=== PATIENT | female | born 1970 | race Two or more races ===

== ENCOUNTER 2025-03-11 17:29 | Emergency (ER) | payer MEDICARE, SELFPAY ==
[2025-03-11 17:48] VITALS: BP 149/79; PULSE 81; RESP 18; TEMP 37.1; O2SAT 95; BMI 28.9
--- NOTE | 2025-03-11 17:57 | XR_ITS ---
Examination: PA lateral chest 2 views TECHNIQUE: Upright PA and lateral chest 2 views Date and time: March 11, 2025 1916 hours Comparison June 19, 2018 INDICATIONS: Coughing and shortness of breath beginning 5 days ago FINDINGS: Normal heart size Moderate vascular congestion Increased markings at the right lung base suspicious for early pneumonia Right internal jugular dialysis catheter satisfactory position IMPRESSION: Moderate vascular congestion Suspicious for early pneumonia right base
--- NOTE | 2025-03-11 17:57 | PD.EDURI ---
Upper Respiratory Inf. RME/HPI General Chief Complaint: Flu Like Symptoms Stated Complaint: Cough, nausea, and bodyaches Time Seen by Provider: 03/11/25 17:57 Source: patient Arrival date/time: 03/11/25 17:29 54-year-old female sent by family physician for an x-ray to rule out pneumonia. Mode of arrival: ambulatory Limitations: no limitations RME / HPI MD Complaint: cough Related Data Home Medications ?Medication ?Instructions ?Recorded ?Confirmed atorvastatin 40 mg tablet 40 mg PO QDAY 04/22/24 04/22/24 ergocalciferol (vitamin D2) 1,250 50,000 unit PO QWEEK 04/22/24 04/22/24 mcg (50,000 unit) capsule insulin detemir U-100 100 unit/mL 45 unit subcut BID 04/22/24 04/22/24 subcutaneous solution (Levemir U-100 Insulin) semaglutide 1 mg/dose (4 mg/3 mL) 4 mg subcut QWEEK 04/22/24 04/22/24 subcutaneous pen injector (Ozempic) sodium bicarbonate 325 mg tablet 325 mg PO DAILY 04/22/24 04/23/24 vitamin B complex-vitamin C-folic 1 tab PO DAILY 04/22/24 04/23/24 acid 0.8 mg tablet (Naina-Bruce) ferrous sulfate 325 mg (65 mg 325 mg PO QDAY 04/23/24 04/23/24 iron) tablet (iron) magnesium glycinate 240 mg PO DAILY 04/23/24 04/23/24 Previous Rx's ?Medication ?Instructions ?Recorded losartan 25 mg tablet 50 mg (2 x 25 mg) PO QDAY #30 tabs 04/24/24 metoprolol tartrate 25 mg tablet 50 mg (2 x 25 mg) PO BID #60 tabs 04/24/24 azithromycin 250 mg tablet See Rx Instructions PO .COMPLEX #6 03/11/25 (Zithromax Z-Shaheen) tabs Allergies Allergy/AdvReac Type Severity Reaction Status Date / Time ondansetron Allergy Intermediate Rash Verified 03/11/25 17:32 Sulfa (Sulfonamide Allergy Unknown Verified 03/11/25 17:32 Antibiotics) Review of Systems Constitutional Constitutional: Reports system reviewed and no additional complaints, except as documented Eyes Eyes: Reports system reviewed and no additional complaints, except as documented, Denies dry eyes, Denies exophthalmos and Reports floaters Cardiovascular Cardiovascular: Denies chest pain with activity and Denies claudication Past Medical History Past Medical History NEUROLOGIC: Negative Neurological Disorders or Seizures CARDIAC: Negative Cardiac Disorders or Congestive Heart Failure RESPIRATORY: Negative Chronic Obstructive Pulmonary Disease (COPD) GASTROINTESTINAL: Negative Gastrointestinal Disorders GENITOURINARY: Negative Genitourinary Disorders or Renal Disease MUSCULOSKELETAL: Negative Musculoskeletal Disorders ENT: Positive Blind ENDOCRINE: Positive Diabetes Mellitus Type 2; Negative Endocrine Disorders or Diabetes Mellitus Type 1 HEMATOLOGIC: Negative Blood Disorders OTHER HISTORY: Positive Blood Transfusions; Negative Autoimmune Disease, Blood Transfusion Reaction, Anesthesia Reactions, MRSA or Cancer Family History FAMILY HISTORY: Positive Family Cancer (Grandmother Breast Cancer); Negative Family Respiratory Disorders or Family Cardiac Disorders Surgical History SURGICAL: Positive Eye Surgery (Pt said she loss her vision and had eye sx on September 2019.); Negative Cardiac Surgery, Endocrine Surgery, Ear Surgery, Abdominal Surgery, Nephrectomy, Joint Replacement, Neurologic Surgery or Mastectomy Social History SMOKING STATUS: Never smoker ED Exam Narrative Physical exam: Patient is in no apparent respiratory distress. General Limitations: Present no limitations General appearance: Present alert and in no apparent distress Head Head exam: Present atraumatic Eye Eye exam: Present normal appearance, PERRL and EOMI ENT ENT exam: Present normal exam, normal oropharynx and mucous membranes moist Neck Neck exam: Present normal inspection, full ROM and trachea midline Chest Chest inspection: Present normal inspection and symmetric chest wall rise Respiratory Respiratory exam: Present normal lung sounds bilaterally Cardiovascular Cardiovascular exam: Present regular rate, normal rhythm and normal heart sounds Extremities Exam Extremities exam: Present normal inspection and full ROM Back Exam Back exam: Present normal inspection and full ROM Neurological Exam Neurological exam: Present alert, oriented X3 and CN II-XII intact Psychiatric Psychiatric exam: Present normal affect and normal mood Skin Skin exam: Present warm, dry, intact and normal color Course Course Course Narrative: Patient will have a chest x-ray. Chest x-ray demonstrates pneumonia. I will send to the pharmacy Zithromax. Patient is to inform the primary care physician of the pneumonia and the subsequent therapeutic regimen. Quality Measures none Orders Category Date Time Status XR chest 2V Stat Exams 03/11/25 17:57 Completed Vital Signs Vital signs: Vital Signs Temperature 98.7 F 03/11/25 17:48 Pulse Rate 81 03/11/25 17:48 Respiratory Rate 18 03/11/25 17:48 Blood Pressure 149/79 H 03/11/25 17:48 Pulse Oximetry (%) 95 03/11/25 17:48 Oxygen Delivery Method Room Air 03/11/25 17:48 Pulse ox room air 95% Upper Respiratory Infection MDM Narrative MDM Narrative:: Patient will be discharged in no apparent distress. Patient while she was here had a two-view chest x-ray which demonstrated a slight pneumonia. Patient will have Zithromax sent to the pharmacy of her choice and she is to follow-up with primary care physician within a 2-day. If she is worse she may return here. Patient data External records reviewed:: Other (specify) Clinical information provided by:: patient Social determinants that could affect healthcare access:: none Patient has the following chronic illnesses:: Patient is a dialysis patient How is presenting disease/condition affected by chronic disease/condition?: uneffected by (Pneumonia) Evaluation data The following diagnostics were reviewed and interpreted by me:: radiology exam(s) Lab and/or radiology exams considered but not ordered:: Chest x-ray reveals pneumonia Interpretation Summary: N/A Medications / Prescriptions Medications or Prescriptions considered but not ordered:: N/A Medication administrations:: N/A Consultations Consultation(s) initiated? (list below): No Consultation #1 (Physician, Specialty, Details): N/A Diagnosis Upper Respiratory Differential Diagnosis: other Most likely diagnosis given after review of the tests above:: Pneumonia Admission Indicated Admission indicated?: not indicated Admission Request Was there a request for admission?: No Disposition Plan Disposition Plan: Discharge Discharge Attestation Discharge Attestation: The patient and all family members were given an opportunity to ask questions and understood the discharge instructions. Discharge instructions specifically effects, indications for sooner follow up or return to the emergency department, and the expected course of current diagnosis. Patient condition: Stable Discharge Plan Plan Patient Disposition: HOME (Self Care) Discharge Disposition comment: Discharge in no apparent distress Patient condition on transfer: Stable Prescriptions/Referrals Prescriptions/Med Rec: New azithromycin [Zithromax Z-Shaheen] 250 mg tablet See Rx Instructions .ROUTE .COMPLEX Qty: 6 0RF Rx Instructions: For 250 mg dose pack: take 500 mg today (day 1), then 250 mg for 4 days (days 2-5) No Action atorvastatin 40 mg Tablet 40 mg PO QDAY sodium bicarbonate 325 mg Tablet 325 mg PO DAILY Naina-Bruce 0.8 mg tablet 1 tab PO DAILY Patient Comments: TAKE 1 TABLET BY MOUTH EVERY DAY ergocalciferol (vitamin D2) 1,250 mcg (50,000 unit) capsule 50,000 unit PO QWEEK Patient Comments: TAKE 1 CAPSULE BY MOUTH WEEKLY Rx Instructions: QSundays Levemir U-100 Insulin 100 unit/mL solution 45 unit SUBCUT BID Ozempic 1 mg/dose (4 mg/3 mL) pen injector 4 mg SUBCUT QWEEK Rx Instructions: QThursdays ferrous sulfate [iron] 325 mg (65 mg iron) Tablet 325 mg PO QDAY Rx Instructions: over the counter magnesium glycinate 100 mg magnesium Capsule 240 mg PO DAILY Rx Instructions: over the counter losartan 25 mg Tablet 50 mg PO QDAY Qty: 30 0RF metoprolol tartrate 25 mg Tablet 50 mg PO BID Qty: 60 0RF Referrals: Kristina Francis FNP [Primary Care Provider] - In 1 week Problem List Clinical Impression: Pneumonia Patient/Caregiver Discharge Instructions Print Language: Mongolian SASHA/MARTY Supervising Physician SASHA/MARTY Supervising Physician: SARA
== END 2025-03-11 19:59 | disposition home or self-care (01) ==
PROVIDERS: Emergency Provider Emergency Medicine; PCP Nurse Practitioner Family
DX: J18.9 Pneumonia, unspecified organism (principal)
CPT/HCPCS: 71046; 99283

== ENCOUNTER 2025-03-18 05:17 | Observation (INO) | payer MEDICARE, MEDICAID, SELFPAY ==
[2025-03-18] VITALS (23 sets, daily range): BP systolic 104–194; BP diastolic 58–106; PULSE 66–84; RESP 16–20; TEMP 36.3–36.7; O2SAT 96–99; BMI 28.8
--- NOTE | 2025-03-18 05:27 | EKG_ITS ---
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
--- NOTE | 2025-03-18 05:35 | XR_ITS ---
Examination: PA chest single view TECHNIQUE: Upright PA chest single view Date and time: March 18, 2025, 0558 hours Comparison March 11, 2025 INDICATIONS: Shortness of breath chest tightness beginning 7 days ago. FINDINGS: Mild CHF. Mild enlargement cardiac contour. Prominent vascular congestion. Perihilar basilar edema. Right internal jugular dialysis catheter tip right atrium IMPRESSION: Mild CHF
--- NOTE | 2025-03-18 05:35 | PD.EDRME ---
Rapid Medical Screening Exam [facility] Arrival date/time: 03/18/25 05:17 54F with history of ESRD (WS) and DM presents to ED with 1 week of SOB and chest pressure, especially when lying down. Patient was here last week and CXR showed PNA. Patient was given a Z-yesica, which states improved her cough, but not her SOB/CP. Chief Complaint: Shortness of Breath/Dyspnea Vital signs: Vital Signs Temperature 98.0 F 03/18/25 05:23 Pulse Rate 76 03/18/25 05:23 Respiratory Rate 17 03/18/25 05:23 Blood Pressure 178/94 H 03/18/25 05:23 Pulse Oximetry (%) 97 03/18/25 05:23 Oxygen Delivery Method Room Air 03/18/25 05:23
[2025-03-18 05:50] LABS: Lactate (Lactic Acid) 0.8 mMol/L (0.4-2.0)
[2025-03-18 06:03] LABS: Basophils % (Auto) 0 % (0-2.5); Eosinophils # (Auto) 0.2 Thou/mm3 (0.0-0.5); Eosinophils % (Auto) 3 % (0-10); Hematocrit 28.7 % (36.0-46.0); Hemoglobin 9.8 g/dL (12.0-16.0); Immature Granulocytes % (Auto) 0 % (0-0); Immature Granulocytes Auto 0.02 Thou/mm3 (0.00-0.00); Lymphocytes # (Auto) 1.9 Thou/mm3 (1.0-4.8); Lymphocytes % (Auto) 25 % (10-50); Mean Corpuscular HGB Conc 34.1 g/dl (31.0-37.0); Mean Corpuscular Hemoglobin 29.3 pg (25.0-35.0); Mean Corpuscular Volume 86 fL (80-100); Monocytes # (Auto) 0.5 Thou/mm3 (0.0-0.8); Monocytes % (Auto) 6 % (0-12); Neutrophils # (Auto) 4.9 Thou/mm3 (1.8-7.7); Neutrophils % (Auto) 65 % (37-80); Nucleated Red Blood Cell % 0 /100 WBC (0); Platelet Count 123 Thou/mm3 (140-440); RDW Standard Deviation 49.2 fL (36.4-46.3); Red Blood Count 3.34 Miln/mm3 (4.00-5.20); White Blood Count 7.5 Thou/mm3 (3.6-11.0)
[2025-03-18 06:38] LABS: Alanine Aminotransferase 11 U/L (10-49); Albumin, Serum 3.6 gm/dL (3.5-5.0); Alkaline Phosphatase 57 U/L (46-116); Anion Gap 14 (7-16); Aspartate Amino Transferase 18 U/L (0-34); B-Type Natriuretic Peptide 555 pg/mL (0-100); BUN/Creatinine Ratio 5 Ratio (12-20); Bilirubin,Total 0.3 mg/dL (0.3-1.2); Blood Urea Nitrogen 58 mg/dL (9-23); Calcium (Corrected) 7.1 mg/dL (8.5-10.1); Carbon Dioxide 21.8 mMol/L (20.0-31.0); Chloride 104 mMol/L (98-107); Estimated Creatinine Clearance 5.3 mL/min (>60); Globulin 3.5 gm/dL (2.3-3.5); Glucose 158 mg/dL (74-106); Osmolality,Calculated 298 (275-295); Potassium 4.5 mMol/L (3.4-5.1); Procalcitonin 0.22 ng/ml (0.0-0.49); Sodium 140 mMol/L (136-145); Total Protein 7.1 gm/dL (5.7-8.2); Troponin I < 0.020 ng/mL (0.0-0.045); eGFR 3 See Note
[2025-03-18 06:44] LABS: Calcium 6.8 mg/dL (8.3-10.6); Creatinine (Component) 11.8 mg/dL (0.6-1.3)
--- NOTE | 2025-03-18 07:26 | PC.NURSE ---
Patient from [facility] and taken to er room 18 with c/o cough that started last week, finished zpak on sunday, patient states cough is gone however, patient has increased sob when she tries to lay flat since last night, Skin warm dry and pink, Paltient denies pain, skin is slightly pale, warm and dry, chart up to be seen by er provider to review all labs an xray. Call light within reach.
--- NOTE | 2025-03-18 07:32 | PD.EDADULT ---
ED General RME/HPI General Chief complaint: Shortness of Breath/Dyspnea Stated complaint: SOB CHEST TIGHTNESS X 7DAYS Time Seen by Provider: 03/18/25 07:31 Arrival date/time: 03/18/25 05:17 RME / HPI RME / HPI narrative: 03/18/25 05:17 54F with history of ESRD (WS) and DM presents to ED with 1 week of SOB and chest pressure, especially when lying down. Patient was here last week and CXR showed PNA. Patient was given a Z-shaheen, which states improved her cough, but not her SOB/CP. DR. SALDIVAR MAIN ED EVALUATION: 54 year old female with past medical history significant for renal disease with dialysis (used to be //Sun and not Sun/Sun) presents to the Emergency Department with complaint of shortness of breath since last night, worsening today. Symptoms are moderate. Last dialysis was Sunday, she missed this morning's dialysis session. Associated symptoms include bilateral leg swelling. She was seen here last week and had slight pneumonia; she has a mild cough with some phlegm since. No fevers or chills. No other symptoms reported at this time. Related Data Home Medications ?Medication ?Instructions ?Recorded ?Confirmed atorvastatin 40 mg tablet 40 mg PO QDAY 04/22/24 04/22/24 ergocalciferol (vitamin D2) 1,250 50,000 unit PO QWEEK 04/22/24 04/22/24 mcg (50,000 unit) capsule insulin detemir U-100 100 unit/mL 45 unit subcut BID 04/22/24 04/22/24 subcutaneous solution (Levemir U-100 Insulin) semaglutide 1 mg/dose (4 mg/3 mL) 4 mg subcut QWEEK 04/22/24 04/22/24 subcutaneous pen injector (Ozempic) sodium bicarbonate 325 mg tablet 325 mg PO DAILY 04/22/24 04/23/24 vitamin B complex-vitamin C-folic 1 tab PO DAILY 04/22/24 04/23/24 acid 0.8 mg tablet (Naina-Bruce) ferrous sulfate 325 mg (65 mg 325 mg PO QDAY 04/23/24 04/23/24 iron) tablet (iron) magnesium glycinate 240 mg PO DAILY 04/23/24 04/23/24 carvedilol 12.5 mg tablet 12.5 mg PO Q12H PRN hypertension 03/18/25 03/18/25 Previous Rx's ?Medication ?Instructions ?Recorded losartan 25 mg tablet 50 mg (2 x 25 mg) PO QDAY #30 tabs 04/24/24 metoprolol tartrate 25 mg tablet 50 mg (2 x 25 mg) PO BID #60 tabs 04/24/24 azithromycin 250 mg tablet See Rx Instructions PO .COMPLEX #6 03/11/25 (Zithromax Z-Shaheen) tabs Allergies Allergy/AdvReac Type Severity Reaction Status Date / Time ondansetron Allergy Intermediate Rash Verified 03/11/25 17:32 Sulfa (Sulfonamide Allergy Unknown Verified 03/11/25 17:32 Antibiotics) Review of Systems Review of Systems Systems Reviewed: All systems reviewed, normal except as documented Narrative Review of Systems: Constitutional: DENIES: fevers; Eyes: DENIES: loss of vision; Head/Ear/Nose: DENIES: loss of hearing. Throat: DENIES: dysphagia. Cardiovascular: DENIES: chest pain, dyspnea, or syncope. Respiratory: POSITIVES: shortness of breath; mild cough with some phlegm Gastrointestinal: DENIES: rectal bleeding or melena. Genitourinary: DENIES: dysuria (painful or difficult urination); Musculoskeletal: POSITIVES: bilateral leg swelling DENIES: arthralgia (pain in a joint); Skin: DENIES: rash; Neurological: DENIES: loss of function or movement; Psychiatric: DENIES: recent major life stressor, emotional problem, illicit drug use or abuse; Endocrinology: DENIES: weight change,; Hematologic/Lymphatic: DENIES: abnormal bruising. Allergic/Immunologic: DENIES: urticaria (hives). Past Medical History Past Medical History CARDIAC: Positive Hypertension ENT: Positive Blind ENDOCRINE: Positive Diabetes Mellitus Type 2 OTHER HISTORY: Positive Blood Transfusions Family History FAMILY HISTORY: Positive Family Cancer Surgical History SURGICAL: Positive Eye Surgery Social History SMOKING STATUS: Never smoker SUBSTANCE USE: does not use ALCOHOL: Never ED Exam Narrative Physical exam: Physical Exam: General: The vital signs were reviewed. Systolic blood pressure is elevated in 190s. The patient is non-toxic, in no apparent distress and appears healthy with a patent airway, no respiratory distress and has no apparent circulatory problems. Head & Scalp: Normocephalic, atraumatic. Face: Appears normal and is without lesions, deformity. Ears: Left external pinna appears normal. Right external pinna appears normal. Eyes: The sclera is anicteric. No obvious photophobia. The Left and Right Orbit/Lid/Conjunctiva appears normal without swelling, discoloration or injection. Nose: The nose is without deformity, discharge or tenderness; Throat: Appears normal. The mucous membranes are pink and moist without exudates, redness or mass seen. The tongue appears normal. Neck: The neck is supple and no apparent mass or adenopathy. Chest: The chest wall is normal in size and symmetry and has no chest wall tenderness or crepitus. The patient displays normal ventilator effort without retractions, accessory muscle use and has adequate air movement bilaterally with no wheezes and no rales. Cardiovascular: Regular rate and rhythm; No murmurs, rubs, or gallops; Gastrointestinal: The abdomen appears normal. No obvious hernias or mass. The abdomen is soft and benign, non-distended, with no pain, no guarding and no rebound tenderness. Bowel sounds are present and normal sounding. No CVA tenderness. Genitourinary: Back/Spine: Normal inspection Extremities/Musculoskeletal/lymphatic: The bilateral upper and lower extremities are warm. There is no evidence of arterial insufficiency. There is 3-4+ pitting edema bilateral lower extremities. There is no oozing. The patient spontaneously moves bilateral upper and lower extremities with no pain and no limitation of movement. There is no apparent, injury or trauma. Skin: The skin is warm, dry and intact. No rashes. No petechia. No purpura. No abnormal bruising. The color is appropriate with no cyanosis. Mental status/Psychiatric: Mental status is appropriate for age. The patient has no apparent delusions, visual hallucinations, no apparent audible hallucinations. The patient has no apparent suicidal thoughts/ideation and no apparent homicidal thoughts/ideation. Neurological: The patient is awake, alert, interactive, cordial, cooperative and is oriented to name and situation. The patient follows commands and answers historical question with no impairment. There is no visual disturbance apparent. The pupils are equal and reactive bilaterally with normal eye movements and no diplopia The bilateral upper and lower extremities have normal strength, normal range of motion and normal functioning. The gait, station and balance not tested due to acuity Course Quality Measures none Orders Category Date Time Status Dialysis [Hemodialysis] Urgent Care 03/18/25 08:14 Active EKG (ED ONLY) *Do not use* NOW Care 03/18/25 05:27 Completed EKG (ED Only) Stat Exams 03/18/25 05:27 Draft XR chest 1V portable Stat Exams 03/18/25 05:35 Completed B-Type Natriuretic Peptide Stat Lab 03/18/25 05:47 Completed CBC Stat Lab 03/18/25 05:47 Completed Comprehensive Metabolic Panel Stat Lab 03/18/25 05:47 Completed Lactate (Lactic Acid) Stat Lab 03/18/25 05:47 Completed Procalcitonin Stat Lab 03/18/25 05:47 Completed Troponin I Stat Lab 03/18/25 05:47 Completed Albumin Human 25% Ivpb [Albuminar-25 Ivpb] Med 03/18/25 08:14 Active 25 gm in 100 ml IV PRN Epoetin Dre Inj [Procrit Inj] Med 03/18/25 14:00 Once 10,000 unit SC X1 ONE Heparin* 1000 UNITS/ML- 10 ML [Heparin 1000 UNITS/ML- Med 03/18/25 09:17 Active 10 ML] 3,300 unit INDWELLCAT PRN PRN Nitroglycerin Oint 2% [Nitro-paste Oint 2%] Med 03/18/25 07:45 Discontinued 2 inch TOP X1 ONE carVEDILOL [Coreg] Med 03/18/25 07:49 Discontinued 12.5 mg PO X1 ONE hydrALAZINE INJ [Apresoline Inj] Med 03/18/25 07:45 Discontinued 20 mg IV X1 ONE Vital Signs Vital signs: Vital Signs Temperature 98.0 F 03/18/25 05:23 Pulse Rate 76 03/18/25 05:23 Respiratory Rate 17 03/18/25 05:23 Blood Pressure 178/94 H 03/18/25 05:23 Pulse Oximetry (%) 97 03/18/25 05:23 Oxygen Delivery Method Room Air 03/18/25 05:23 Critical Care Time Critical Care Time Critical Care Time: Yes Total Critical Care Time (min.): 40 Attestation: for hypertensive urgency The high probability of sudden, clinically significant deterioration in the patient?s condition required the highest level of my preparedness to intervene urgently. The services I provided to this patient were to treat and/or prevent clinically significant deterioration. Services included the following: chart data review, reviewing nursing notes and/or old charts, documentation time, media consultant outside sales collaboration regarding findings and treatment options, medication orders and management, direct patient care, vital sign assessments and ordering, interpreting and reviewing diagnostic studies and lab tests. Aggregate critical care time includes only time during which I was engaged in work directly related to the patient?s care, as described above, whether at bedside or elsewhere in the Emergency Department. It did not include time spent performing other reported procedures or the services of residents, students, nurses or physician assistants. Discharge Plan Plan Patient Disposition: Admit Acute Care w/in Hospital Discharge Disposition comment: Hospitalist admit Dr Ramirez to consult Problem List Clinical Impression: End stage renal failure on dialysis, Fluid overload, Orthopnea MDM Narrative [facility] hospital course: I, Jolly Santamaria, am scribing for and in the presence of Dr. Saldivar. Patient is end-stage renal failure patient who states she gets dialysis twice a week and missed today's because she is having increased shortness of breath and orthopnea. Patient is clinically fluid overloaded with rales in the bases hypertension pitting edema chest x-ray with vascular redistribution and BNP that is elevated. Patient informs me that they decreased her dialysis twice a week because a corporate decision but I called Dr. Sue who reports the patient has been noncompliant with her dialysis and asked why that decision was made. Dr. Sue's and come see this patient as she will need emergent dialysis. Blood pressure 194/106 at 730 this morning white count 7.3 hemoglobin is low at 9.8. BUN is 58 creatinine is 11.8 consistent with chronic renal failure. Glucose 158 calcium is low at 6.8 lactic acid is 0.8. BNP is elevated 555. Chest x-ray read by myself shows heart be a little large there is vascular redistribution present. Suggestive of fluid overload and or CHF. There is no effusion seen. No mass seen. Soft tissues otherwise are unremarkable I spoke with Dr. Byrne the hospitalist and they agreed to admit the patient for observation and reevaluate after dialysis to see if she still short of breath and workup further or discharge as needed. Clinical Information Provided by patient and spouse Medical Records Reviewed [facility] (Reviewed last ED visit dated 03/11/25, discharged with the following: Pneumonia) Meds/Rx Considered, not Ordered None Labs/Rad/Tests considered, not Ordered None Chronic Illness/Social Conditions which may negatively complicate care or outcome(s)-explain: Hx of noncompliance Add or document further as needed: Renal disease with dialysis (used to be T//Sat and not Sun/Sun) with corrugator helper Dr. Ramirez. Later Dr Ramirez informed the patient has been noncompliant that is why they stopped 3 days a week as he was not showing up. EKG Interpretation EKG #1: Date/time of EK03/18/25 0529 am EKG interpretation: Interpreted by me: sinus rhythm, rate 75, no STEMI Lab Interpretation Labs: see narrative above Imaging Imaging interpretation: see narrative above Radiology reports / interpretation(s): Procedure(s): XR chest 1V portable Accession Number(s): [id number] cc: Kristina Francis; Chris Maldonado MD; Juanjo Camargo PA-C~ Examination: PA chest single view TECHNIQUE: Upright PA chest single view Date and time: March 18, 2025, 0558 hours Comparison March 11, 2025 INDICATIONS: Shortness of breath chest tightness beginning 7 days ago. FINDINGS: Mild CHF. Mild enlargement cardiac contour. Prominent vascular congestion. Perihilar basilar edema. Right internal jugular dialysis catheter tip right atrium IMPRESSION: Mild CHF Dictated By: Chris Maldonado MD Medication Administration(s) Medication Administration History Epoetin Dre (Epoetin Dre Inj 1,000 Unit/0.05 Ml Unit) 10,000 unit SC X1 ONE Stop: 03/18/25 14:01 Heparin Sodium (Porcine) (Heparin Sod Inj 1000 Unit/Ml Vial 10 Ml) 3,300 unit INDWELLCAT PRN PRN PRN Reason: DIALYSIS Stop: 04/01/25 09:16 Albumin Human (Albuminar-25 Ivpb) 25 gm in 100 mls @ 100 mls/min IV PRN PRN PRN Reason: DIALYSIS Discontinued Medications Carvedilol (Carvedilol 3.125 Mg Tablet) 12.5 mg PO X1 ONE Stop: 03/18/25 07:50 Last Admin: 03/18/25 08:22 Dose: 12.5 mg Documented By: AURORA Hydralazine HCl (Hydralazine Inj 20 Mg/Ml Vial) 20 mg IV X1 ONE Stop: 03/18/25 07:46 Last Admin: 03/18/25 08:22 Dose: 20 mg Documented By: AURORA Comments: via 20g left ac over 3 min. Nitroglycerin (Nitroglycerin Oint 2% 1 Inch Packet) 2 inch TOP X1 ONE Stop: 03/18/25 07:46 Last Admin: 03/18/25 08:25 Dose: 2 inch Documented By: AURORA Consultations/Discussions re: Management Consult #1: Date/time: 03/18/25 7:53 am Physician, specialty, service, details: Discussed test HPI, PMHx, lab, radiology results and/or management with Dr. Ramirez. She came to see the patient at bedside and following her recommendations. Diagnosis Differential diagnosis: CHF, cellulitis, pneumonia Dispositon Disposition: Admit Disposition comments: Patient will need emergent dialysis for her orthopnea and fluid overload condition. Once he is stabilized with dialysis the hospitalist will reevaluate make a decision whether to further workup or discharge.
[2025-03-18] MEDS: carVEDILOL 3.125 MG TABLET 12.5 MG PO (08:22)
[2025-03-18] MEDS: hydrALAZINE INJ 20 MG/ML VIAL IV (08:22)
[2025-03-18] MEDS: NITROGLYCERIN OINT 2% 1 INCH PACKET 2 INCH TOP (08:25)
--- NOTE | 2025-03-18 09:15 | PC.NURSE ---
Patient gone to dialysis
--- NOTE | 2025-03-18 10:49 | PD.RESHP ---
Documentation for date of: 03/18/25 HPI History of Present Illness Chief complaint: SOB History of present illness: Ms. Bolden is a 54-year-old female with past medical history significant for end-stage renal disease with history of noncompliance with dialysis sessions, hyperlipidemia, hypertension, diabetes mellitus who presented to the ED with shortness of breath. Patient symptoms started last night, and came to the ED due to worsening shortness of breath today. Her last dialysis session was on Sunday, and was supposed to get dialysis this morning, however missed appointment due to her worsening symptoms. Associated symptoms include swelling of the lower extremities and productive cough. Patient denies having any fever/chills, nausea/vomiting chest pain, abdominal pain, constipation, diarrhea, weakness or numbness in her lower extremities. Of note, patient had some symptoms of upper respiratory tract infection last week states that she had a mild pneumonia . ED course: Patient presented with a blood pressure 178/94, otherwise vital signs unremarkable and stable. Labs significant for low hemoglobin of 9.8, thrombopenia, creatinine of 11.8, GFR of 3, calcium of 6.8, and BNP at 555. Patient's calcium was slightly low at 6.8. Lactic acid within normal limits. Pro-Rodríguez negative. EKG showed sinus rhythm with heart rate of 75. Chest x-ray showed mild CHF pattern with vascular congestion. In the ED, patient was given hydralazine 20 x 1, carvedilol 12.5 mg x 1, nitroglycerin patch. Neurology was consulted for emergency dialysis. Per nephrology patient was only able to tolerate 1.2 L removal. Will need another dialysis session tomorrow as patient's symptoms have not improved as much. Patient to be admitted under observation for further management of fluid overload requiring dialysis. Review of Systems Review of Systems Systems Reviewed: All systems reviewed, normal except as documented Exam Vital Signs Temp Pulse Resp BP Pulse Ox O2 Del Method 97.5 F 68 20 104/58 L 96 Room Air 03/18/25 08:47 03/18/25 10:30 03/18/25 08:47 03/18/25 10:30 03/18/25 08:47 03/18/25 07:29 Narrative Exam General Appearance: Pt in mild acute distress laying in bed. HEENT: NC/AT, no scleral icterus, no conjunctival pallor, MMM Lungs: CTAB, no wheezes or crackles appreciated CVS: RRR, S1/S2 heard, no murmurs or rubs appreciated, 2+ pitting edema bilaterally in lower extremities ABD: Soft, non-tender, non-distended, BS + in all 4 quadrants EXT: no deformity/edema/lesions/cyanosis/clubbing, radial pulses 2+ BL, DP pulses 2 + BL SKIN: Skin exam normal without any rashes. Neuro: A&O x 3. No gross neurological deficits. Motor and sensory grossly intact in B/L UL and LL. Psych: Appropriate mood and affect Results: Labs 03/18/25 05:47 03/18/25 05:47 Labs: Short CBC 03/18/25 Range/Units 05:47 WBC 7.5 (3.6-11.0) Thou/mm3 Hgb 9.8 L (12.0-16.0) g/dL Hct 28.7 L (36.0-46.0) % Plt Count 123 L (140-440) Thou/mm3 BMP 03/18/25 05:47 Sodium 140 Potassium 4.5 Chloride 104 Carbon Dioxide 21.8 BUN 58 H Creatinine 11.8 H* Glucose 158 H Calcium 6.8 L* Cardiac Enzymes 03/18/25 Range/Units 05:47 Troponin I < 0.020 (0.0-0.045) ng/mL Liver Function 03/18/25 Range/Units 05:47 Total Bilirubin 0.3 (0.3-1.2) mg/dL AST 18 (0-34) U/L ALT 11 (10-49) U/L Alkaline Phosphatase 57 (46-116) U/L Albumin 3.6 (3.5-5.0) gm/dL Quality Measures Quality Measures none Medications Home Medications and Allergies Home Medications ?Medication ?Instructions ?Recorded ?Confirmed ?Type atorvastatin 40 mg tablet 40 mg PO QDAY 04/22/24 04/22/24 History ergocalciferol (vitamin D2) 1,250 50,000 unit PO QDAY 04/22/24 03/18/25 History mcg (50,000 unit) capsule insulin detemir U-100 100 unit/mL 45 unit subcut BID 04/22/24 04/22/24 History subcutaneous solution (Levemir U-100 Insulin) semaglutide 1 mg/dose (4 mg/3 mL) 1 mg subcut QWEEK 04/22/24 03/18/25 History subcutaneous pen injector (Ozempic) sodium bicarbonate 325 mg tablet 325 mg PO DAILY 04/22/24 04/23/24 History vitamin B complex-vitamin C-folic 1 tab PO DAILY 04/22/24 04/23/24 History acid 0.8 mg tablet (Naina-Bruce) ferrous sulfate 325 mg (65 mg 325 mg PO QDAY 04/23/24 04/23/24 History iron) tablet (iron) magnesium glycinate 240 mg PO DAILY 04/23/24 04/23/24 History carvedilol 12.5 mg tablet 12.5 mg PO Q12H PRN hypertension 03/18/25 03/18/25 History ezetimibe 10 mg tablet 10 mg PO QDAY 03/18/25 03/18/25 History insulin detemir U-100 100 unit/mL 40 unit subcut BID 03/18/25 03/18/25 History (3 mL) subcutaneous pen Allergies Allergy/AdvReac Type Severity Reaction Status Date / Time ondansetron Allergy Intermediate Rash Verified 03/11/25 17:32 Sulfa (Sulfonamide Allergy Unknown Verified 03/11/25 17:32 Antibiotics) Visit Medications Acetaminophen (Acetaminophen 325 Mg Tablet) 650 mg PO Q6H PRN PRN Reason: Fever >100.4 or Pain 1-3 Stop: 04/17/25 10:42 Dextrose (Dextrose 50%-Water Inj 50 Ml Syringe) 25 ml IV Q15MIN PRN PRN Reason: BG 50-70 responsive npo pt Stop: 04/17/25 10:45 Dextrose (Dextrose 50%-Water Inj 50 Ml Syringe) 50 ml IV Q15MIN PRN PRN Reason: BG <50 OR BG <70 & pt unresponsive Stop: 04/17/25 10:45 Epoetin Dre (Epoetin Dre Inj 1,000 Unit/0.05 Ml Unit) 10,000 unit SC X1 ONE Stop: 03/18/25 14:01 Glucagon (Glucagon Inj 1 Mg Vial) 1 mg IM Q15MIN PRN PRN Reason: BG <70, and no IV access Heparin Sodium (Porcine) (Heparin Sod Inj 1000 Unit/Ml Vial 10 Ml) 3,300 unit INDWELLCAT PRN PRN PRN Reason: DIALYSIS Stop: 04/01/25 09:16 Albumin Human (Albuminar-25 Ivpb) 25 gm in 100 mls @ 100 mls/min IV PRN PRN PRN Reason: DIALYSIS Insulin Human Lispro (Insulin Lispro (Admelog) 1 Unit/0.01 Ml Unit) 0 unit SC AC PATTIE; Protocol Stop: 04/17/25 11:29 Metoclopramide HCl (Metoclopramide Inj 5 Mg/Ml Vial 2 Ml) 10 mg IVP Q6H PRN; Protocol PRN Reason: NAUSEA OR VOMITING Stop: 04/17/25 10:42 Sennosides (Senna Tablet) 1 tab PO QDAY [facility]; Protocol Stop: 04/17/25 10:44 Vitamin B Complex/Vit C/Folic Acid (Vit B12/Vit C/Fa (Nephrovite) Tablet) 1 tab PO QDAY PATTIE Stop: 04/17/25 10:59 Discontinued Medications Carvedilol (Carvedilol 3.125 Mg Tablet) 12.5 mg PO X1 ONE Stop: 03/18/25 07:50 Last Admin: 03/18/25 08:22 Dose: 12.5 mg Hydralazine HCl (Hydralazine Inj 20 Mg/Ml Vial) 20 mg IV X1 ONE Stop: 03/18/25 07:46 Last Admin: 03/18/25 08:22 Dose: 20 mg Nitroglycerin (Nitroglycerin Oint 2% 1 Inch Packet) 2 inch TOP X1 ONE Stop: 03/18/25 07:46 Last Admin: 03/18/25 08:25 Dose: 2 inch Assessment & Plan Plan Ms. Bolden is a 54-year-old female with past medical history significant for end-stage renal disease with history of noncompliance with dialysis sessions, hyperlipidemia, hypertension, diabetes mellitus who presented to the ED with shortness of breath and admitted under observation for further management of fluid overload requiring dialysis. #Volume overload #ESRD on hemodialysis Patient has a history of noncompliance with ESRD sessions. Patient had her last hemodialysis session on Sunday, however due to worsening shortness of breath since last night, patient missed today's dialysis. In general, patient has only been going to dialysis sessions twice a week. However per nephrology, patient agrees to now have dialysis sessions 3 times a week to help prevent hospitalizations and worsening of symptoms as presented today. -Nephrology consulted, appreciate recommendations -Started patient on Naina-Bruce -Patient already had her first hemodialysis session today, however was only able to have 1.2 L removed, and ended dialysis session early due to cramping -Patient will have the hemodialysis session scheduled for tomorrow per nephrology #Hypertension Per external med rec, patient takes carvedilol 12.5 mg twice daily - Will start patient on home medications and uptitrate as blood pressure tolerates - Will monitor patient on environmental monitoring specialist - Will monitor patient's vital signs and symptoms #Hyperlipidemia Will resume patient's home atorvastatin #Diabetes mellitus Unsure when patient's last A1c was Patient takes home glargine 40BID and Ozempic - Will order A1c for tomorrow morning - Will start patient on sliding scale insulin - Hypoglycemic protocol -Lantus 10 QD Health Maintenance: DVT prophylaxis: SCDs Diet: Renal Supplemental O2: None CODE STATUS: Full code Disposition: Pending reevaluation tomorrow after hemodialysis session. Pending patient's improving of symptoms made is for discharge within 24 to 48 hours. Patient's plan and care discussed with my attending, Dr. Lucas Rodriguez MD PGY-2 Attending Provider Attestation/Addendum I attest that I was physically present for the evaluation, physical examination, lab and imaging review of the patient with the residents. I discussed the case with the residents and agree with the findings and plans of care as documented above. Patient is a 54 years old female with past medical history of ESRD on hemodialysis, noncompliance with dialysis sessions, hyperlipidemia, hypertension, diabetes mellitus who presented to the ED with complaint of shortness of breath and pedal edema. Her last hemodialysis session was on Sunday, next one being this morning but she decided to visit the ED due to worsening shortness of breath. In the ED, she was found to have blood pressure of 178/90, rest of the vitals were within normal limits. Patient has been saturating well on room air. Lab results show hemoglobin of 9.8, creatinine 11.8, BNP 555. Chest x-ray showed mild CHF pattern with vascular congestion, patient has bilateral pedal edema 2+ on examination. Discussed with nephrology, stated that they will arrange for dialysis today and think that patient may need another dialysis session tomorrow morning as well. We will admit the patient on observation for management of volume overload secondary to hemodialysis noncompliance. We will reevaluate patient after dialysis session today and tomorrow and plan for discharge tomorrow if stable. Alessandra Cotto MD
--- NOTE | 2025-03-18 11:00 | PC.NURSE ---
PT C/O CRAMPING UF OFF, WILL ADMIN 50ML NS BOLUS AND CONT. TO MONITOR
--- NOTE | 2025-03-18 11:01 | PC.NURSE ---
PT STILL C/O CRAMPING WILL ADMIN 50ML NS BOLUS AND CONT. TO MONITOR
--- NOTE | 2025-03-18 11:01 | PC.NURSE ---
TX TERMINATED EARLY PER PT REQUEST D/T CONT'D. CRAMPING DESPITE OFFERING OTHER INTERVENTIONS AND EDUCATION ON RISK VS BENEFITS. NOTIFIED.
[2025-03-18] MEDS: HEPARIN SOD INJ 1000 UNIT/ML VIAL 10 ML 3300 UNIT INDWELLCAT (11:07)
[2025-03-18] MEDS: EPOETIN ALFA INJ 1,000 UNIT/0.05 ML UNIT 10000 UNIT SC (11:21)
--- NOTE | 2025-03-18 11:45 | PC.NURSE ---
Patient back from dialysis, Report received from dialysis nurse, they removed 1.2L of fluid, VS at dialysis 130/67,hr 69, patient also received Etacrit 10,000 at 1121, per dialysis nurse, patient sitting up at bedside and states she feels better after dialysis and feels like she is breathing better, denies sob at this time, call light within reach.
--- NOTE | 2025-03-18 14:07 | PD.RESCONSUL ---
HPI Data of Consult Consult date: 03/18/25 Requesting Physician: Alessandra Cotto MD Admitting Provider: Alessandra Cotto MD Attending Provider: Alessandra Cotto MD Primary Care Provider: ALESSIA Joe Consult Narrative Reason for consult: ESRD on dialysis History of present illness: 54 y/o F with PMHx significant for renal disease with dialysis (history of noncompliance with dialysis sessions) presents to the Emergency Department with complaint of shortness of breath since last night, worsening today. Symptoms are moderate. Last dialysis was Sunday, she missed this morning's dialysis session. Associated symptoms include bilateral leg swelling. She was seen here last week and had slight pneumonia; she has a mild cough with some phlegm since. No fevers or chills. No other symptoms reported at this time. Nephrology consulted for management of dialysis. Patient seen examined at bedside, mildly uncomfortable. Notable shortness of breath and leg edema. Discussed missing dialysis sessions with patient, patient agreed to present for 3 sessions weekly going forward. Given patient's fluid overloaded status, dialysis was attempted with 3 L fluid removal, however patient experiencing frequent cramping after 1.2 L were removed. Session was ended early, patient saturating low 98% on room air showing improvement. WBC 9.5, hemoglobin 9.8, sodium 140, potassium 4.5, bicarb 21.8, BUN 50, creatinine 11.8, EGFR 3, calcium 6.8, phosphorus 1.9. Plan for additional dialysis session tomorrow. cc:: cc: Alessandra Cotto MD Review of Systems Review of Systems Systems Reviewed: All systems reviewed, normal except as documented Exam Vital Signs Temp Pulse Resp BP Pulse Ox O2 Del Method 97.3 F 84 16 143/78 H 99 Room Air 03/18/25 14:04 03/18/25 14:04 03/18/25 14:04 03/18/25 14:04 03/18/25 14:04 03/18/25 14:04 Narrative Exam PE: Gen: Well-developed and well-nourished. HEENT: NCAT, PERRLA, EOMI, MMM, anicteric conjunctivae. CVS: normal S1 and S2. RRR. No M/R/G. Resp: CTA B/L. No rhonchi, rales, crackles or wheezing. Abd: soft, non-tender, non-distended. MSK: Good ROM in BUE & BLE. No rash. 2+ pitting edema BLE. Neuro: CN II-XII grossly intact. Strength 5/5 in BUE & BLE. Alert and oriented x3. Psych: appropriate mood and affect. Results Labs 03/18/25 05:47 03/18/25 05:47 Labs: Short CBC 03/18/25 Range/Units 05:47 WBC 7.5 (3.6-11.0) Thou/mm3 Hgb 9.8 L (12.0-16.0) g/dL Hct 28.7 L (36.0-46.0) % Plt Count 123 L (140-440) Thou/mm3 BMP 03/18/25 05:47 Sodium 140 Potassium 4.5 Chloride 104 Carbon Dioxide 21.8 BUN 58 H Creatinine 11.8 H* Glucose 158 H Calcium 6.8 L* Cardiac Enzymes 03/18/25 Range/Units 05:47 Troponin I < 0.020 (0.0-0.045) ng/mL Liver Function 03/18/25 Range/Units 05:47 Total Bilirubin 0.3 (0.3-1.2) mg/dL AST 18 (0-34) U/L ALT 11 (10-49) U/L Alkaline Phosphatase 57 (46-116) U/L Albumin 3.6 (3.5-5.0) gm/dL Quality Measures Quality Measures VTE prophylaxis Medications Home Medications and Allergies Home Medications ?Medication ?Instructions ?Recorded ?Confirmed ?Type ergocalciferol (vitamin D2) 1,250 50,000 unit PO QDAY 04/22/24 03/18/25 History mcg (50,000 unit) capsule semaglutide 1 mg/dose (4 mg/3 mL) 1 mg subcut QWEEK 04/22/24 03/18/25 History subcutaneous pen injector (Ozempic) carvedilol 12.5 mg tablet 12.5 mg PO Q12H PRN hypertension 03/18/25 03/18/25 History ezetimibe 10 mg tablet 10 mg PO QDAY 03/18/25 03/18/25 History insulin detemir U-100 100 unit/mL 40 unit subcut BID 03/18/25 03/18/25 History (3 mL) subcutaneous pen Allergies Allergy/AdvReac Type Severity Reaction Status Date / Time ondansetron Allergy Intermediate Rash Verified 03/11/25 17:32 Sulfa (Sulfonamide Allergy Unknown Verified 03/11/25 17:32 Antibiotics) Visit Medications Acetaminophen (Acetaminophen 325 Mg Tablet) 650 mg PO Q6H PRN PRN Reason: Fever >100.4 or Pain 1-3 Stop: 04/17/25 10:42 Dextrose (Dextrose 50%-Water Inj 50 Ml Syringe) 25 ml IV Q15MIN PRN PRN Reason: BG 50-70 responsive npo pt Stop: 04/17/25 10:45 Dextrose (Dextrose 50%-Water Inj 50 Ml Syringe) 50 ml IV Q15MIN PRN PRN Reason: BG <50 OR BG <70 & pt unresponsive Stop: 04/17/25 10:45 Glucagon (Glucagon Inj 1 Mg Vial) 1 mg IM Q15MIN PRN PRN Reason: BG <70, and no IV access Heparin Sodium (Porcine) (Heparin Sod Inj 1000 Unit/Ml Vial 10 Ml) 3,300 unit INDWELLCAT PRN PRN PRN Reason: DIALYSIS Stop: 04/01/25 09:16 Last Admin: 03/18/25 11:07 Dose: 3,300 unit Albumin Human (Albuminar-25 Ivpb) 25 gm in 100 mls @ 100 mls/min IV PRN PRN PRN Reason: DIALYSIS Insulin Human Lispro (Insulin Lispro (Admelog) 1 Unit/0.01 Ml Unit) 0 unit SC AC PATTIE; Protocol Stop: 04/17/25 11:29 Last Admin: 03/18/25 12:42 Dose: Not Given Metoclopramide HCl (Metoclopramide Inj 5 Mg/Ml Vial 2 Ml) 10 mg IVP Q6H PRN; Protocol PRN Reason: NAUSEA OR VOMITING Stop: 04/17/25 10:42 Sennosides (Senna Tablet) 1 tab PO QDAY PATTIE; Protocol Stop: 04/17/25 10:44 Vitamin B Complex/Vit C/Folic Acid (Vit B12/Vit C/Fa (Nephrovite) Tablet) 1 tab PO QDAY PATTIE Stop: 04/17/25 10:59 Discontinued Medications Carvedilol (Carvedilol 3.125 Mg Tablet) 12.5 mg PO X1 ONE Stop: 03/18/25 07:50 Last Admin: 03/18/25 08:22 Dose: 12.5 mg Epoetin Dre (Epoetin Dre Inj 1,000 Unit/0.05 Ml Unit) 10,000 unit SC X1 ONE Stop: 03/18/25 14:01 Last Admin: 03/18/25 11:21 Dose: 10,000 unit Hydralazine HCl (Hydralazine Inj 20 Mg/Ml Vial) 20 mg IV X1 ONE Stop: 03/18/25 07:46 Last Admin: 03/18/25 08:22 Dose: 20 mg Nitroglycerin (Nitroglycerin Oint 2% 1 Inch Packet) 2 inch TOP X1 ONE Stop: 03/18/25 07:46 Last Admin: 03/18/25 08:25 Dose: 2 inch Assessment & Plan Assessment 54 y/o F with PMHx significant for diabetes, hypertension, dyslipidemia, renal disease with dialysis (history of noncompliance with dialysis sessions) presents to the Emergency Department with complaint of progressive shortness of breath after missing dialysis session. Nephrology consulted for ESRD on dialysis. #ESRD on dialysis Patient has history of ESRD on dialysis, although is noncompliant with dialysis sessions. Patient presenting today with fluid overload after missing dialysis sessions. Inpatient hospice session was performed, attempt to remove 3 L of fluid, however patient experience cramping can only tolerate 1.2 L fluid removal. However patient showed signs of improvement, was previously on oxygen and is now saturating well on room air. - Plan for additional dialysis session tomorrow - Avoid nephrotoxins - Renally dose meds - Encourage patient to come to all outpatient dialysis sessions #Hypertension #Diabetes #Dyslipidemia Management as per the primary team. Thank you for allowing us to participate in the care of this patient. Plan of care discussed with attending Dr. Ramirez. Sajan Jacobo MD PGY?1 Attending Provider Attestation/Addendum Patient seen and examined with resident physician Dr. Brown. Note reviewed, agree with findings and recommendations. Patient currently seen in the emergency department. Admitted with fluid overload. ESRD secondary to diabetic nephropathy. Has been significantly noncompliant with dialysis sessions and was cut down to twice weekly. Patient also not able to tolerate more than 1-1/2 to 2 L of ultrafiltration per session. She gained more than 10 kg. Patient currently seen on dialysis. Tolerating dialysis without any problems. Hemodialysis for 3 hours, 2K, ultrafiltration 2-3 L, Epogen 6000, no heparin ordered. Plan of care discussed with the dialysis nurse. Please see dialysis flowsheet for further details. Spoke to at bedside to be compliant. She will need extra session tomorrow. Thank you Alessandra for allowing me to participate in the care of Ms. Bolden
[2025-03-18] MEDS: VIT B12/Vit C/FA (Nephrovite) TABLET 1 TAB PO (14:44)
[2025-03-18] MEDS: carVEDILOL 12.5 MG TABLET PO (17:39)
[2025-03-18] MEDS: ATORVASTATIN CALCIUM 20 MG TABLET 40 MG PO (20:14)
[2025-03-18] MEDS: INSULIN GLARGINE (Lantus) 5 UNIT/0.05 ML (PER 5 UNITS) 10 UNIT SC (20:15)
[2025-03-19] VITALS (20 sets, daily range): BP systolic 134–193; BP diastolic 72–96; PULSE 66–80; RESP 17–18; TEMP 36.3–36.8; O2SAT 92–98; BMI 28.6
[2025-03-19] MEDS: CALCIUM CARBONATE 600 MG TABLET PO (04:37)
[2025-03-19] MEDS: CALCIUM GLUCONATE 10% INJ 1 GM/10 ML VIAL IV (04:38)
[2025-03-19 05:43] LABS: Basophils % (Auto) 0 % (0-2.5); Eosinophils # (Auto) 0.1 Thou/mm3 (0.0-0.5); Eosinophils % (Auto) 2 % (0-10); Hematocrit 27.2 % (36.0-46.0); Hemoglobin 9.4 g/dL (12.0-16.0); Immature Granulocytes % (Auto) 0 % (0-0); Immature Granulocytes Auto 0.01 Thou/mm3 (0.00-0.00); Lymphocytes # (Auto) 1.8 Thou/mm3 (1.0-4.8); Lymphocytes % (Auto) 30 % (10-50); Mean Corpuscular HGB Conc 34.6 g/dl (31.0-37.0); Mean Corpuscular Hemoglobin 29.7 pg (25.0-35.0); Mean Corpuscular Volume 86 fL (80-100); Monocytes # (Auto) 0.4 Thou/mm3 (0.0-0.8); Monocytes % (Auto) 7 % (0-12); Neutrophils # (Auto) 3.7 Thou/mm3 (1.8-7.7); Neutrophils % (Auto) 61 % (37-80); Nucleated Red Blood Cell % 0 /100 WBC (0); Platelet Count 107 Thou/mm3 (140-440); RDW Standard Deviation 49.4 fL (36.4-46.3); Red Blood Count 3.17 Miln/mm3 (4.00-5.20); White Blood Count 6.1 Thou/mm3 (3.6-11.0)
[2025-03-19 06:18] LABS: Alanine Aminotransferase 8 U/L (10-49); Albumin, Serum 3.3 gm/dL (3.5-5.0); Alkaline Phosphatase 53 U/L (46-116); Anion Gap 15 (7-16); Aspartate Amino Transferase 17 U/L (0-34); BUN/Creatinine Ratio 4 Ratio (12-20); Bilirubin,Total 0.3 mg/dL (0.3-1.2); Blood Urea Nitrogen 41 mg/dL (9-23); Calcium 7.5 mg/dL (8.3-10.6); Calcium (Corrected) 8.1 mg/dL (8.5-10.1); Carbon Dioxide 23.1 mMol/L (20.0-31.0); Chloride 98 mMol/L (98-107); Creatinine (Component) 9.6 mg/dL (0.6-1.3); Estimated Creatinine Clearance 6.5 mL/min (>60); Globulin 3.4 gm/dL (2.3-3.5); Glucose 101 mg/dL (74-106); Magnesium 2.4 mg/dL (1.6-2.6); Osmolality,Calculated 282 (275-295); Phosphorous 7.7 mg/dL (2.4-5.1); Potassium 3.6 mMol/L (3.4-5.1); Sodium 136 mMol/L (136-145); Total Protein 6.7 gm/dL (5.7-8.2); eGFR 4 See Note
[2025-03-19 06:45] LABS: Glucose Estimated Average 143 mg/dL (80-131); Hemoglobin A1C 6.6 % Hgb (4.8-6.0)
[2025-03-19] MEDS: carVEDILOL 12.5 MG TABLET PO (08:48)
[2025-03-19] MEDS: VIT B12/Vit C/FA (Nephrovite) TABLET 1 TAB PO (08:48)
--- NOTE | 2025-03-19 09:13 | PC.SS ---
Patient Jennie is a 54 Year old female admitted for Volume Overload. SS met with patient to discuss discharge plan and verify demographic information. Patient reports she lives at home with family. She reports she utilizes a Rollator walker to assist with ambulation. She is able to complete all ADL's independently. Patient gets dialysis in [facility] on Sun and Saturdays. Choice of pharmacy is [facility]. Surrogate decision maker is her daughter, Mira Weinberg [phone]. Patient reports once she is medically cleared she will discharge back home, family will provide transportation. Next of Kin:daughterMira Discharge Plan: Home
--- NOTE | 2025-03-19 09:35 | PD.RESPRO ---
Documentation for date of: 03/19/25 Subjective Subjective Interval history: 54 y/o F with PMHx significant for renal disease with dialysis (history of noncompliance with dialysis sessions) presents to the Emergency Department with complaint of shortness of breath since last night, worsening today. Symptoms are moderate. Last dialysis was Sunday, she missed this morning's dialysis session. Associated symptoms include bilateral leg swelling. She was seen here last week and had slight pneumonia; she has a mild cough with some phlegm since. No fevers or chills. No other symptoms reported at this time. Nephrology consulted for management of dialysis. Patient seen examined at bedside, mildly uncomfortable. Notable shortness of breath and leg edema. Discussed missing dialysis sessions with patient, patient agreed to present for 3 sessions weekly going forward. Given patient's fluid overloaded status, dialysis was attempted with 3 L fluid removal, however patient experiencing frequent cramping after 1.2 L were removed. Session was ended early, patient saturating low 98% on room air showing improvement. WBC 9.5, hemoglobin 9.8, sodium 140, potassium 4.5, bicarb 21.8, BUN 50, creatinine 11.8, EGFR 3, calcium 6.8, phosphorus 1.9. Plan for additional dialysis session tomorrow. 03/19/2025: Patient seen examined at bedside, resting comfortably. Patient is sitting up, endorse significant improvement in subjective symptoms after dialysis session yesterday. However patient was able to complete full course due to cramping. Will add Flexeril as needed. WBC 6.1, hemoglobin 9.4, sodium 136, potassium 3.6, bicarb 23.1, BUN 41, creatinine 9.6, EGFR 4. Corrected calcium 8.1, phosphorus 7.7, magnesium 2.4. Plan for additional dialysis session today. Exam Vital Signs Temp Pulse Resp BP Pulse Ox O2 Del Method 98.1 F 78 17 150/75 H 95 Room Air 03/19/25 08:00 03/19/25 08:48 03/19/25 08:00 03/19/25 08:48 03/19/25 08:00 03/19/25 08:00 Narrative Exam PE: Gen: Well-developed and well-nourished. HEENT: NCAT, PERRLA, EOMI, MMM, anicteric conjunctivae. CVS: normal S1 and S2. RRR. No M/R/G. Resp: CTA B/L. No rhonchi, rales, crackles or wheezing. Abd: soft, non-tender, non-distended. MSK: Good ROM in BUE & BLE. No rash. 2+ pitting edema BLE. Neuro: CN II-XII grossly intact. Strength 5/5 in BUE & BLE. Alert and oriented x3. Psych: appropriate mood and affect. Objective Labs 03/19/25 04:34 03/19/25 04:34 Labs: Laboratory Results - last 24 hr 03/19/25 04:34 WBC 6.1 RBC 3.17 L Hgb 9.4 L Hct 27.2 L MCV 86 MCH 29.7 MCHC 34.6 RDW Std Deviation 49.4 H Plt Count 107 L Neut % (Auto) 61 Lymph % (Auto) 30 Bell % (Auto) 7 Eos % (Auto) 2 Baso % (Auto) 0 Neut # (Auto) 3.7 Lymph # (Auto) 1.8 Bell # (Auto) 0.4 Eos # (Auto) 0.1 Baso # (Auto) 0.0 Immature Gran # (Auto) 0.01 H Absolute Nucleated RBC 0.00 Immature Gran % 0 Nucleated RBC % 0 Sodium 136 Potassium 3.6 D Chloride 98 Carbon Dioxide 23.1 Anion Gap 15 BUN 41 H Creatinine 9.6 H* D Estim Creat Clear Calc 6.5 L eGFR 4 L* BUN/Creatinine Ratio 4 L Glucose [address] Glu mg/dL 143 H Hemoglobin A1c 6.6 H Calculated Osmolality 282 Calcium 7.5 L Corrected Calcium 8.1 L Phosphorus 7.7 H Magnesium 2.4 Total Bilirubin 0.3 AST 17 ALT 8 L Alkaline Phosphatase 53 Total Protein 6.7 Albumin 3.3 L Globulin 3.4 Albumin/Globulin Ratio 1.0 L Quality Measures Quality Measures VTE prophylaxis Assessment & Plan Assessment Current Active Medications: Generic Name Dose Route Start Last Admin Trade Name Freq PRN Reason Stop Dose Admin Acetaminophen 650 mg 03/18/25 10:43 Acetaminophen 325 Mg Tablet PO 04/17/25 10:42 Q6H PRN Fever >100.4 or Pain 1-3 Atorvastatin Calcium 40 mg 03/18/25 21:00 03/18/25 20:14 Atorvastatin Calcium 20 Mg Tablet PO 04/17/25 20:59 40 mg HS PATTIE Administration Carvedilol 12.5 mg 03/18/25 17:30 03/19/25 08:48 Carvedilol 12.5 Mg Tablet PO 04/17/25 17:29 12.5 mg BIDWM PATTIE Administration Cyclobenzaprine HCl 5 mg 03/19/25 09:45 Cyclobenzaprine 5 Mg Tablet PO 04/18/25 09:44 BID PATTIE Dextrose 25 ml 03/18/25 10:46 Dextrose 50%-Water Inj 50 Ml Syringe IV 04/17/25 10:45 Q15MIN PRN BG 50-70 responsive npo pt Dextrose 50 ml 03/18/25 10:46 Dextrose 50%-Water Inj 50 Ml Syringe IV 04/17/25 10:45 Q15MIN PRN BG <50 OR BG <70 & pt unresponsive Glucagon 1 mg 03/18/25 10:46 Glucagon Inj 1 Mg Vial IM Q15MIN PRN BG <70, and no IV access Heparin Sodium (Porcine) 3,300 unit 03/18/25 09:17 03/18/25 11:07 Heparin Sod Inj 1000 Unit/Ml Vial 10 Ml INDWELLCAT 04/01/25 09:16 3,300 unit PRN PRN Administration DIALYSIS Albumin Human 25 gm in 100 mls @ 100 mls/min 03/18/25 08:14 Albuminar-25 Ivpb IV PRN PRN DIALYSIS Insulin Glargine 10 unit 03/18/25 21:00 03/18/25 20:15 Insulin Glargine (Lantus) 5 Unit/0.05 Ml (Per 5 Units) SC 04/17/25 20:59 10 unit HS PATTIE Administration Insulin Human Lispro 0 unit 03/18/25 11:30 03/19/25 07:49 Insulin Lispro (Admelog) 1 Unit/0.01 Ml Unit SC 04/17/25 11:29 Not Given AC [facility] Protocol Metoclopramide HCl 10 mg 03/18/25 10:43 Metoclopramide Inj 5 Mg/Ml Vial 2 Ml IVP 04/17/25 10:42 Q6H PRN NAUSEA OR VOMITING Protocol Sennosides 1 tab 03/18/25 10:45 03/19/25 09:05 Senna Tablet PO 04/17/25 10:44 Not Given QDAY [facility] Protocol Vitamin B Complex/Vit C/Folic Acid 1 tab 03/18/25 11:00 03/19/25 08:48 Vit B12/Vit C/Fa (Nephrovite) Tablet PO 04/17/25 10:59 1 tab QDAY PATTIE Administration Plan 54 y/o F with PMHx significant for diabetes, hypertension, dyslipidemia, renal disease with dialysis (history of noncompliance with dialysis sessions) presents to the Emergency Department with complaint of progressive shortness of breath after missing dialysis session. Nephrology consulted for ESRD on dialysis. #ESRD on dialysis Patient has history of ESRD on dialysis, although is noncompliant with dialysis sessions. Patient presenting today with fluid overload after missing dialysis sessions. Inpatient hospice session was performed, attempt to remove 3 L of fluid, however patient experience cramping can only tolerate 1.2 L fluid removal. However patient showed signs of improvement, was previously on oxygen and is now saturating well on room air. Patient is unable to tolerate full course of dialysis due to cramping, will add muscle relaxer. - Additional dialysis session today - Flexeril 5 mg twice daily as needed for muscle cramps - Avoid nephrotoxins - Renally dose meds - Encourage patient to come to all outpatient dialysis sessions #Hypertension #Diabetes #Dyslipidemia Management as per the primary team. Thank you for allowing us to participate in the care of this patient. Plan of care discussed with attending Dr. Ramirez. Sajan Jacobo MD PGY?1 Attending Provider Attestation/Addendum Patient seen and examined with resident physician Dr. Brown. Note reviewed, agree with findings and recommendations. Patient admitted with fluid overload. patient currently seen on dialysis. Tolerating dialysis without any problems. Hemodialysis for 2.5 hours, sequential ultrafiltration 2-2.5 L, Epogen 6000, no heparin ordered. Plan of care discussed with the dialysis nurse. Please see dialysis flowsheet for further details.
--- NOTE | 2025-03-19 09:37 | PC.SS ---
SS follow up note; Patient will discharge home after dialysis today.
[2025-03-19] MEDS: CYCLObenzaPRINE 5 MG TABLET PO (09:50)
--- NOTE | 2025-03-19 11:10 | ESDS_ITS ---
Planned Discharge Date 03/19/25 DS: Providers Provider Date of admission: 03/18/25 09:42 Primary care physician: ALESSIA Joe Admitting Provider: Alessandra Cotto MD Attending Provider on Admission: Alessandra Cotto MD Consults: 03/18/25 13:42 Consult to Nephrology Routine Comment: Consulting Provider: Jaun Ramirez Attending Provider on DC: Alessandra Cotto MD Discharging Provider: Alessandra Cotto MD DS: Diagnosis Problem List Completed Was Problem List Reviewed/Reconciled?: Yes Hospital Course Hospital Course Hospital course: 54-year-old female with past medical history of ESRD with noncompliance on hemodialysis sessions, hyperlipidemia, hypertension, and DM2 was admitted to hospital on 03/18/2025 due to volume overload status likely secondary from missing hemodialysis session. Patient had come in with complaints of shortness of breath and her last hemodialysis session was on Sunday prior to admission. Initially patient came in hypertensive and initial labs showed hypocalcemia, azotemia, and low hemoglobin. And initial imaging included chest x-ray which shows some mild CHF and EKG which showed sinus rhythm. Patient got hemodialysis on the day of admission and got a total of 1.2 L taken out and afterwards patient was feeling a lot better the next day. Patient's breathing was a lot better as well she stated that she did not have any new complaints. On the day of discharge patient was getting get hemodialysis again prior to being discharged. At the time of discharge patient was stable enough to be discharged home. Discharge plan: Please follow-up with your primary care physician within 1 week upon Please follow-up with your rail signal worker within 1-2 weeks after discharge Please continue taking all home medications as prescribed Please come back to the ER if symptoms persist or worsen Problem list: #Volume overload #ESRD on hemodialysis #Diabetes mellitus #Hyperlipidemia #Hypertension Case disclosed with Attending Dr. Kirti Meeks PGY1 Status at Discharge Overall status at discharge: patient is progressing back to baseline Time Spent with Patient Time attestation: Total time spent providing and/or coordinating discharge services:30 min Time spent: Less than 30 minutes Exam Vital Signs Temp Pulse Resp BP Pulse Ox O2 Del Method 98.2 F 71 18 166/89 H 97 Room Air 03/19/25 10:35 03/19/25 10:42 03/19/25 10:35 03/19/25 10:42 03/19/25 10:35 03/19/25 08:00 Narrative Exam General: A/O x3, no acute distress Eyes: Blind, cloudy pupils Ears: No ear pain, no ear discharge, Hearing grossly intact. Nose: No nasal discharge. Mouth/Throat: Moist mucous membranes, no redness, no lesions. Neck: Neck supple, non-tender, no cervical lymphadenopathy. Lungs: Clear FATOUMATA to auscultation and percussion, No accessory muscle use. Cardio: Normal S1/S2, regular rhythm, no murmurs, no JVD Abdomen: Soft, non-tender, no palpable masses, peristalsis present, no guarding or rebound. Extremities: Symmetrical, no significant deformities, 2+ peripheral edema , non-tender, peripheral pulses presents. Skin: No rashes, no lesions, warm to touch. Neuro: No focal neurological deficits. motor and sensory intact Psych: Cooperative, appropriate mood and effect. Discharge Plan Plan Patient Disposition: HOME (Self Care) Care Plan Goals: Please follow-up with your primary care physician within 1 week upon Please follow-up with your rail signal worker within 1-2 weeks after discharge Please continue taking all home medications as prescribed Please come back to the ER if symptoms persist or worsen Prescriptions/Referrals Prescriptions/Med Rec: Continued ergocalciferol (vitamin D2) 1,250 mcg (50,000 unit) capsule 50,000 unit PO QDAY Patient Comments: TAKE 1 CAPSULE BY MOUTH WEEKLY Rx Instructions: QSundays Ozempic 1 mg/dose (4 mg/3 mL) pen injector 1 mg SUBCUT QWEEK Rx Instructions: QThursdays carvedilol 12.5 mg tablet 12.5 mg PO Q12H PRN (Reason: hypertension) Patient Comments: TAKE 1 TABLET BY MOUTH TWICE A DAY insulin detemir U-100 100 unit/mL (3 mL) insulin pen 40 unit subcut BID ezetimibe 10 mg tablet 10 mg PO QDAY Patient Comments: TAKE 1 TABLET BY MOUTH EVERY DAY FOR 30 DAYS Referrals: Kristina Francis, [employer]ITION [employer] [Primary Care Provider] - Jaun Ramirez MD [Physician] - Patient/Caregiver Discharge Instructions Other Discharge Activity Instructions:: Please follow-up with your primary care physician within 1 week upon Please follow-up with your rail signal worker within 1-2 weeks after discharge Please continue taking all home medications as prescribed Please come back to the ER if symptoms persist or worsen Education Materials: CKD Dc Print Language: Welsh Stand Alone Forms: [employer] Award Info., Patient Portal Info Letter, Work/Release Restrictions Discharge Order Discharge Orders: Discharge (Routine); Ordered 03/19/25 Ordered By: Jose Meeks Quality Discharge Quality Measures VTE prophylaxis Attestestation MD Attestation I attest that I was physically present for the evaluation, physical examination, lab and imaging review of the patient with the residents. I discussed the case with the residents and agree with the findings and plans of care as documented above. Alessandra Cotto MD
[2025-03-19] MEDS: HEPARIN SOD INJ 1000 UNIT/ML VIAL 10 ML 3300 UNIT INDWELLCAT (13:22)
[2025-03-19] MEDS: hydrALAZINE INJ 20 MG/ML VIAL 10 MG IVP (14:21)
== END 2025-03-19 16:24 | disposition home or self-care (01) ==
LOC: SERX 07:31 → SERHOLD 10:14 → S3SX 13:49
PROVIDERS: Physician Assistant; Student in an Organized Health Care Education/Training Program; Admitting Provider Student in an Organized Health Care Education/Training Program; Emergency Provider Emergency Medicine; PCP Nurse Practitioner Family; Visit Provider Student in an Organized Health Care Education/Training Program
DX: E11.22 Type 2 diabetes mellitus with diabetic chronic kidney disease (principal); N18.6 End stage renal disease; Z99.2 Dependence on renal dialysis; I50.9 Heart failure, unspecified; I13.2 Hypertensive heart and chronic kidney disease with heart failure and with stage 5 chronic kidney disease, or end stage renal disease; E83.51 Hypocalcemia; E78.5 Hyperlipidemia, unspecified; D69.6 Thrombocytopenia, unspecified; D64.9 Anemia, unspecified; Z79.4 Long term (current) use of insulin; Z91.158 Patient's noncompliance with renal dialysis for other reason; Z01.810 Encounter for preprocedural cardiovascular examination
CPT/HCPCS: 36415; 71045; 80053; 83036; 83605; 83735; 83880; 84100; 84145; 84484; 85025; 87081; 87811; 90935; 93005; 96372; 96374; 99291; G0378; J0360; J0612; J1643; J1815; Q4081; A9270; G0257